=== PATIENT | female | born 1990 | race Caucasian/White ===

== ENCOUNTER → 2016-05-07 | Outpatient (CLI) | payer BC ==
--- NOTE | 2016-05-07 14:33 | US ---
EXAMINATION TYPE: US OB <= 14 wk fetus first trimester DATE OF EXAM: 05/07/2016 2:10 PM COMPARISON: No previous CLINICAL HISTORY: Z36 Confirm Dates. EXAM PERFORMED: Transabdominal (TA) EXAM MEASUREMENTS: GESTATIONAL AGE / DATING Physician Established: (11 weeks/5 days) EDC: 11/21/2016 Dates by LMP: Unknown Dates by First Scan: Today is 1st scan Dates by Current Scan for: (12 weeks/5 days) EDC: 11/14/2016 MATERNAL ANATOMY Uterus: 12.0 x 6.9 x 9.3cm, anteverted Right Ovary: 3.0 x 1.3 x 1.3cm Left Ovary: 3.0 x 2.4 x 1.8cm Post CDS / Adnexa: small amount of free fluid in posterior cul-de-sac Presence of free fluid: yes Presence of corpus luteal cyst: 1.3 x 1.3 x 1.3cm hypoechoic area left ovary Presence of subchorionic bleed: no GESTATION / SURVEY CRL: 6.2cm (12 weeks/5 days) Yolk Sac (normal less than 6mm): not seen Heart Rate: 155 bpm Rhythm: Normal IUP: Viable IUP Nuchal Translucency 10-14wks (normal less than 3mm): unable to obtain due to position Date of LMP: Unknown Beta HcG (if available): Not available at time of exam TECHNOLOGIST IMPRESSION: Viable single IUP measuring 12 weeks 5 days with a heart rate of 155bpm and an estimated delivery date of 11/14/2016. Single live intrauterine gestation is confirmed as gestational sac and pole are seen. Yolk sac is not clearly identified. Tiny amount of free fluid is seen in pelvic cul-de-sac. Both ovaries are identified. Within left ovary there is rim hypervascular 1.3 cm lesion likely reflec ting corpus luteal cyst. No suspicious solid or cystic extraovarian adnexal masses are identified. IMPRESSION: Single live intrauterine gestation is confirmed. Mean crown-rump length is 6.2 cm corresponding to 12 weeks 5 day old fetus.
[2016-05-07 14:48] LABS: CH 28.3; CHCM 32.7; HCT 38.3 % (34.0-46.0); HDW 2.35; HGB 12.2 gm/dL (11.4-16.0); MCH 27.7 pg (25.0-35.0); MCHC 31.9 g/dL (31.0-37.0); MCV 86.9 fL (80.0-100.0); Mean Platelet Volume 7.9; RBC 4.41 m/uL (3.80-5.40); RDW 13.8 % (11.5-15.5)
[2016-05-07 14:58] LABS: Glucose 87 mg/dL (74-99); Non-African American GFR(MDRD) >60 (>60 ml/min/1.73 sqM)
[2016-05-07 15:28] LABS: Hepatitis B Surface Ag Index 0.07
== END | disposition home or self-care (01) ==
LOC: RADUSWWP 13:43
PROVIDERS: ATTEND Obstetrics & Gynecology
DX: Z36 Encounter for antenatal screening of mother (principal); Z3A.12 12 weeks gestation of pregnancy
CPT/HCPCS: 36415; 76801; 82565; 82947; 85027; 86762; 86780; 86850; 86900; 86901; 87340

== ENCOUNTER → 2016-08-07 | Outpatient (CLI) | payer BC ==
[2016-08-07 11:00] LABS: CH 29.9; HCT 32.4 % (34.0-46.0); HDW 2.71; HGB 10.9 gm/dL (11.4-16.0); MCH 29.9 pg (25.0-35.0); MCHC 33.8 g/dL (31.0-37.0); MCV 88.5 fL (80.0-100.0); Mean Platelet Volume 8.7; RBC 3.66 m/uL (3.80-5.40); RDW 13.4 % (11.5-15.5)
== END | disposition home or self-care (01) ==
LOC: LABWHC1 10:41
PROVIDERS: ATTEND Obstetrics & Gynecology
DX: Z34.02 Encounter for supervision of normal first pregnancy, second trimester (principal); Z3A.00 Weeks of gestation of pregnancy not specified
CPT/HCPCS: 36415; 82950; 85027

== ENCOUNTER 2016-11-17 16:29 | Inpatient (IN) | payer BC ==
[~2016-11-17 16:29] MED LIST: BUPIVACAINE (PF) 0.25% 30 ML VIAL ONE; SODIUM CHLORIDE 0.9% 100 ML BAG ONE; fentaNYL (PF) 50 MCG/ML 5 ML AMP ONE
[2016-11-17 17:01] LABS: Appearance,Urine Clear (Clear); Bilirubin,Urine Negative (Negative); Glucose,Urine (UA) Negative (Negative); Ketones,Urine Negative (Negative); Leukocyte Esterase,Urine Negative (Negative); Nitrite,Urine Negative (Negative); PH, Urine 6.5 (5.0-8.0); Protein,Urine Negative (Negative); Specific Gravity,Urine 1.003 (1.001-1.035); UA Billing (MACRO vs. MICRO) CHEM; Urobilinogen,Urine <2.0 mg/dL (<2.0)
--- NOTE | 2016-11-17 17:33 | P.HPOB ---
History of Present Illness H&P Date: 11/17/16 Chief Complaint: Hypertension This patient is a pleasant 26-year-old 1 para 0 female estimated date of confinement 11/14/2016 estimated gestational age 40-3/7 weeks who presented to my office for routine visit was found to have elevated blood pressure 140s over 90s. Patient was scheduled for induction tomorrow. Patient has noticed some swelling but no other signs or symptoms. Patient now presents for observation and delivery. care has been uncomplicated. Review of Systems Constitutional: Denies chills, Denies fever Ears, nose, mouth and throat: Denies headache, Denies sore throat Cardiovascular: Denies chest pain, Denies shortness of breath Gastrointestinal: Reports heartburn Genitourinary: Reports Menstruation: Reports amenorrhea Past Medical History Past Medical History: No Reported History History of Any Multi-Drug Resistant Organisms: None Reported Past Surgical History: No Surgical Hx Reported Past Anesthesia/Blood Transfusion Reactions: No Reported Reaction Past Psychological History: No Psychological Hx Reported Smoking Status: Never smoker Past Alcohol Use History: None Reported Past Drug Use History: None Reported Medications and Allergies Home Medications Medication Instructions Recorded Confirmed Type 78/Iron/Folate 1/Dha 1 tab PO DAILY 11/17/16 11/17/16 History [Prenate Dha Softgel] Allergies Allergy/AdvReac Type Severity Reaction Status Date / Time No Known Allergies Allergy Verified 11/17/16 16:46 Exam - Vital Signs Vital signs: Intake and Output 11/17/16 11/17/16 11/17/16 06:59 14:59 22:59 Other: Weight 90.718 kg Patient Weight 11/18/16 06:59 Weight 90.718 kg - OBG Physical Exam Vulva: both: normal Vagina: normal moisture, no discharge Cervix: no lesion (Cervix is 2 cm and uneffaced but soft.), no discharge Uterus: enlarged (Fundal height is 39 cm.) Results blood work shows she is A positive, rubella low positive, hepatitis B negative, RPR nonreactive, group B strep was negative, ultrasounds have been normal, Glucola was normal. Assessment and Plan (1) Third trimester Narrative/Plan: This is a pleasant 26-year-old 1 para 0 female 40-3/7 weeks gestation with mild gestational hypertension without signs and symptoms of preeclampsia. Patient was scheduled for induction tomorrow. Plan at this time is to check preeclampsia blood work, serial blood pressures and nonstress testing. If evaluation is negative we'll continue observation and proceed with delivery tomorrow morning. Status: Acute (2) Gestational hypertension Status: Acute
[2016-11-17 17:41] LABS: Basophils % (A) 0 %; CH 29.7; CHCM 34.5; Eosinophils # (A) 0.1 k/uL (0-0.7); Eosinophils % (A) 1 %; HCT 33.9 % (34.0-46.0); HDW 2.75; HGB 11.6 gm/dL (11.4-16.0); Luc # (Auto) 0.11; Luc % (Auto) 1; Lymphocytes # (A) 1.1 k/uL (1.0-4.8); Lymphocytes % (A) 14 %; MCH 29.7 pg (25.0-35.0); MCHC 34.3 g/dL (31.0-37.0); MCV 86.6 fL (80.0-100.0); Mean Platelet Volume 9.7; Monocytes # (A) 0.4 k/uL (0-1.0); Monocytes % (A) 5 %; Neutrophils # (A) 6.5 k/uL (1.3-7.7); Neutrophils % (A) 79 %; RBC 3.91 m/uL (3.80-5.40); RDW 14.3 % (11.5-15.5); WBC 8.3 k/uL (3.8-10.6); WBC (Perox) 8.61
[2016-11-17 17:52] LABS: ALT 28 U/L (9-52); AST 20 U/L (14-36); LDH 450 U/L (313-618); Non-African American GFR(MDRD) >60 (>60 ml/min/1.73 sqM); Uric Acid 2.9 mg/dL (3.7-7.4)
[2016-11-17 17:56] VITALS: BMI 30.4
[2016-11-17 18:03] LABS: INR 0.9 (<1.2); Partial Thromboplastin Time 22.6 sec (22.0-30.0); Prothrombin Time 9.4 sec (9.0-12.0)
[2016-11-18] MEDS ORDERED: OXYTOCIN 20 UNITS/1000 ML NS 1,000 ML IV SCH ×2 (05:08→13:15)
[2016-11-18] MEDS ORDERED: OXYTOCIN 10 UNIT/ML 1 ML VIAL IM PRN (05:08)
[2016-11-18] MEDS ORDERED: LIDOCAINE 1% (PF) 10 MG/ML (30 ML SDV) SQ PRN (05:08)
[2016-11-18] MEDS ORDERED: CARBOPROST TROMETHAMINE 250 MCG/ML 1 ML AMP IM PRN (05:08)
[2016-11-18] MEDS ORDERED: METHYLERGONOVINE 0.2 MG/ML 1 ML AMP IM PRN (05:08)
[2016-11-18] MEDS ORDERED: TERBUTALINE 1 MG/ML VIAL SQ PRN (05:08)
[2016-11-18] MEDS: LACTATED RINGERS 1,000 ML IV SCH ×3 (05:21→10:55)
[2016-11-18] MEDS ORDERED: BUPIVACAINE (PF) 0.25% 25 ML, fentaNYL (PF) 200 MCG in SODIUM CHLORIDE 0.9% 71 ML EPIDURAL ONE (11:30)
[2016-11-18] MEDS ORDERED: ZOLPIDEM 5 MG TAB PO PRN (13:08)
[2016-11-18] MEDS ORDERED: diphenhydrAMINE 50 MG/ML 1 ML VIAL IVP PRN (13:08)
[2016-11-18] MEDS ORDERED: diphenhydrAMINE 25 MG CAP PO PRN (13:08)
[2016-11-18] MEDS ORDERED: BISACODYL 10 MG SUPP RECTAL PRN (13:08)
[2016-11-18] MEDS ORDERED: BENZOCAINE/MENTHOL SPRAY 1 GM/SPRAY AEROSOL TOPICAL PRN (13:08)
[2016-11-18] MEDS ORDERED: Acetaminophen-Codeine 300-30mg TAB PO PRN (13:08)
[2016-11-18] MEDS ORDERED: WITCH HAZEL 1 EACH MED..PAD TOPICAL PRN (13:08)
[2016-11-18] MEDS ORDERED: MEASLES-MUMPS-RUBELLA VACC/PF 12,500 UNIT/0.5 ML VIAL SQ ONE (13:08)
[2016-11-18] MEDS ORDERED: HYDROCORTISONE 2.5% RECTAL CREAM 30 GM TUBE RECTAL PRN (13:08)
[2016-11-18] MEDS ORDERED: SIMETHICONE 80 MG CHEWABLE PO PRN (13:08)
[2016-11-18] MEDS ORDERED: LANOLIN CREAM 5 GM TUBE TOPICAL PRN (13:08)
[2016-11-18] MEDS ORDERED: ACETAMINOPHEN TAB 325 MG TAB PO PRN (13:08)
--- NOTE | 2016-11-18 13:12 | P.PROBDLV ---
Vaginal Delivery Note - . Vaginal Delivery Note: Normal vaginal delivery viable female Apgars 8 and 9 delivery time is 1246 hrs. Please see dictated H&P for intimate details of this patient's admission. Brief summary this is a pleasant 26-year-old 1 para 0 female 40-3/7 weeks gestation who is admitted last evening for evaluation of hypertension patient's preeclampsia evaluation was negative and blood pressures were normal.' s morning patient had artificial rupture membranes at 2 cm for clear fluid labor was induced with Pitocin. Labor progresses quickly and she did receive an epidural for pain control. Patient pushes the head to the perineum and a midline episiotomy is made. We then have controlled delivery of infant's head over the perineum. Mouth and nares are bulb suctioned and there is no evidence of a nuchal cord. With gentle downward traction we then have deliver the anterior and posterior shoulder and rest this 's body. Is a vigorous viable female infant Apgars are 8 and 9 delivery time is 1246 hrs. After delivery of the infant the umbilical cord is doubly clamped and cut it is trivascular but is noted to have a true knot. Placenta spontaneously delivered intact. Estimated blood loss is 150 mL. Second-degree laceration was repaired with 3-0 Vicryl in the usual fashion excellent reapproximation is noted. All counts are correct 3. No complications. and mother stable delivery room.
[2016-11-18] MEDS: IBUPROFEN 600 MG TAB PO PRN (15:35)
[2016-11-18] MEDS: SENNOSIDES-DOCUSATE SODIUM 1 EACH TAB PO SCH (19:37)
[2016-11-19] MEDS: IBUPROFEN 600 MG TAB PO PRN ×3 (06:10→18:01)
--- NOTE | 2016-11-19 06:24 | P.PNOBGVD ---
Subjective - Subjective Patient reports: Reports appetite normal, Reports voiding normally, Reports pain well controlled, Reports ambulating normally : doing well Objective - Latest Vital Signs Latest vital signs: Vital Signs Temp Pulse Pulse Resp BP BP Pulse Ox 11/19/16 00:00 98 F 74 15 110/56 11/18/16 20:00 98.5 F 84 18 131/77 11/18/16 16:00 98.5 F 76 16 133/73 97 11/18/16 15:09 98.4 F 80 16 127/66 11/18/16 14:39 95 16 164/85 11/18/16 14:09 85 16 139/76 11/18/16 13:54 81 16 157/90 11/18/16 13:39 86 16 153/95 11/18/16 13:24 89 16 154/91 11/18/16 13:09 98.5 F 85 16 146/90 Intake and Output 11/18/16 11/18/16 11/19/16 14:59 22:59 06:59 Intake Total 2521.85 Output Total 300 Balance 2221.85 Intake: Intake, IV Titration 2521.85 Amount Lactated Ringers 1,000 ml 2000 @ 125 mls/hr IV .Q8H NEPTALI Rx#:[id number] Oxytocin 20 Units/1000 ml 521.85 Ns 1,000 ml @ 1 MILLIUNIT/MIN 3 mls/hr IV .Q24H NEPTALI Rx#:[id number] Output: Urine 150 Estimated Blood Loss 150 Other: # Voids 1 1 1 # Bowel Movements 0 - Exam Lungs: bilateral: normal Chest: Normal S1, Normal S2 Extremities: Present: normal Abdomen: Present: normal appearance, soft Uterus: Present: normal, firm Assessment and Plan (1) Third trimester Narrative/Plan: Post day #1. Patient is resting without complaints and would like to go home. Vital signs are stable she is afebrile. Uterus firm nontender and she is having normal lochia. Patient's baby is in special care but most likely will go out today and possible discharge. Current Visit: Yes Status: Acute Code(s): Z34.93 - ENCNTR FOR SUPRVSN OF NORMAL PREG, UNSP, THIRD TRIMESTER SNOMED Code(s): 47580082 (2) Gestational hypertension Current Visit: Yes Status: Acute Code(s): O13.9 - GESTATIONAL HTN W/O SIGNIFICANT PROTEINURIA, UNSP TRIMESTER SNOMED Code(s): 96263313
--- NOTE | 2016-11-19 06:26 | P.DS ---
Providers Date of admission: 11/17/16 16:29 Expected date of discharge: 11/19/16 Attending physician: Titus Brothers Primary care physician: Mario Seymour - Discharge Diagnosis(es) (1) Third trimester Current Visit: Yes Status: Acute (2) Gestational hypertension Current Visit: Yes Status: Acute Hospital Course: Please see dictated H&P for intimate details of this patient's admission. Brief summary is a pleasant 26-year-old 1 para 0 female 40-3/7 weeks gestation is admitted to labor and delivery for evaluation of an elevated blood pressure in the office. Patient's found not to have gestational hypertension. Patient has induction of labor electively the following day and quickly goes on to have a vaginal delivery viable female . Please see dictated delivery note. day 1 patient without complaints and wishes to go home. Patient's felt be stable for discharge home follow up with me in 6 weeks. Procedures: Normal spontaneous vaginal delivery Patient Condition at Discharge: Good Plan - Discharge Summary New Discharge Prescriptions: New Acetaminophen-Codeine 300-30mg [Tylenol w/codeine #3] 1 - 2 each PO Q4HR PRN #30 tab PRN Reason: Mild Pain exceeding Tylenol Ibuprofen [Motrin] 600 mg PO Q6HR PRN #40 tab PRN Reason: Mild Pain Or Fever >= 100.5 No Action 78/Iron/Folate 1/Dha [Prenate Dha Softgel] 1 tab PO DAILY Discharge Medication List 78/Iron/Folate 1/Dha [Prenate Dha Softgel] 1 tab PO DAILY 11/17/16 [ History] Acetaminophen-Codeine 300-30mg [Tylenol w/codeine #3] 1 - 2 each PO Q4HR PRN # 30 tab 11/19/16 [Rx] Ibuprofen [Motrin] 600 mg PO Q6HR PRN #40 tab 11/19/16 [Rx] Follow up Appointment(s)/Referral(s): Titus Brothers MD [STAFF PHYSICIAN] - 01/01/17 8:45 am Patient Instructions/Handouts: Vaginal Delivery (DC) Activity/Diet/Wound Care/Special Instructions: No intercourse reining per vagina for 6 weeks. Please call if any fever, chills , excessive vaginal bleeding, and/or abdominal pain. Discharge Disposition: HOME SELF-CARE
[2016-11-19] MEDS: SENNOSIDES-DOCUSATE SODIUM 1 EACH TAB PO SCH ×2 (09:10→20:16)
[2016-11-19] MEDS: Acetaminophen-Codeine 300-30mg TAB PO PRN ×2 (09:34→20:15)
[2016-11-20] MEDS: Acetaminophen-Codeine 300-30mg TAB PO PRN ×2 (00:28→06:43)
--- NOTE | 2016-11-20 05:51 | P.PNOBGVD ---
Subjective - Subjective Patient reports: Reports appetite normal, Reports voiding normally, Reports pain well controlled, Reports ambulating normally : doing well Objective - Latest Vital Signs Latest vital signs: Vital Signs Temp Pulse Resp BP BP 11/19/16 23:50 97.8 F 79 18 118/63 11/19/16 17:00 98 F 84 16 112/66 11/19/16 09:00 97.9 F 90 16 142/92 - Exam Lungs: bilateral: normal Chest: Normal S1, Normal S2 Extremities: Present: normal Abdomen: Present: normal appearance, soft Uterus: Present: normal, firm Assessment and Plan (1) Third trimester Narrative/Plan: day #2. Patient is resting without complaints. She did decide to stay yesterday because her baby is still in the special care nursery. Will be discharged home today. Continue routine care. Current Visit: Yes Status: Acute Code(s): Z34.93 - ENCNTR FOR SUPRVSN OF NORMAL PREG, UNSP, THIRD TRIMESTER SNOMED Code(s): 38541816 (2) Gestational hypertension Current Visit: Yes Status: Acute Code(s): O13.9 - GESTATIONAL HTN W/O SIGNIFICANT PROTEINURIA, UNSP TRIMESTER SNOMED Code(s): 98031257
[2016-11-20] MEDS: SENNOSIDES-DOCUSATE SODIUM 1 EACH TAB PO SCH (09:23)
[2016-11-20 09:31] VITALS: RESP 16
[2016-11-20] MEDS: IBUPROFEN 600 MG TAB PO PRN (11:02)
[2016-11-20 15:21] VITALS: PULSE 72; TEMP 98.1
[2016-11-20 16:27] VITALS: BP 138/77
== END 2016-11-20 17:30 | disposition home or self-care (01) | DRG 775 ==
LOC: 4FBP 16:29
PROVIDERS: ADMIT Obstetrics & Gynecology; ATTEND Obstetrics & Gynecology
PROC: 10E0XZZ Delivery of Products of Conception, External Approach (ICD-10-PCS; principal; 2016-11-18)
PROC: 3E0R3CZ (ICD-10-PCS; principal; 2016-11-18)
PROC: 0W8NXZZ Division of Female Perineum, External Approach (ICD-10-PCS; principal; 2016-11-18)
PROC: 3E033VJ Introduction of Other Hormone into Peripheral Vein, Percutaneous Approach (ICD-10-PCS; principal; 2016-11-18)
PROC: 00HU33Z Insertion of Infusion Device into Spinal Canal, Percutaneous Approach (ICD-10-PCS; principal; 2016-11-18)
PROC: 10907ZC Drainage of Amniotic Fluid, Therapeutic from Products of Conception, Via Natural or Artificial Opening (ICD-10-PCS; principal; 2016-11-18)
PROC: 0KQM0ZZ Repair Perineum Muscle, Open Approach (ICD-10-PCS; principal; 2016-11-18)
DX: O13.4 Gestational [pregnancy-induced] hypertension without significant proteinuria, complicating childbirth (principal); O69.2XX0 Labor and delivery complicated by other cord entanglement, with compression, not applicable or unspecified; O70.1 Second degree perineal laceration during delivery; Z37.0 Single live birth; Z3A.40 40 weeks gestation of pregnancy
CPT/HCPCS: 81003; 82565; 83615; 84450; 84460; 84550; 85025; 85610; 85730; 88307

== ENCOUNTER 2016-12-23 09:32 | Emergency (ER) | payer BC ==
--- NOTE | 2016-12-23 10:18 | ED ---
General Adult HPI - General Chief complaint: Abdominal Pain Stated complaint: abdominal pain/sent by dVisit Time Seen by Provider: 12/23/16 10:00 Source: patient, RN notes reviewed Mode of arrival: ambulatory Limitations: no limitations - History of Present Illness Initial comments: This is a 26-year-old female who is 1 month. Patient states she comes in today because she's having right upper quadrant epigastric abdominal pain. Patient states it began about 4 AM this morning. Patient states she is mildly nauseous but has not vomited. Patient denies any diarrhea. Patient denies any fever or chills. Patient states it was a vaginal delivery without complications. Patient denies any chest pain difficulty breathing or shortness of breath per patient denies any palpitations. Patient denies any back pain. Patient denies any dysuria hematuria urinary frequency. Patient denies any lower abdominal pain. Patient denies any vaginal bleeding or discharge. Patient denies headache patient denies lightheadedness. - Related Data Home Medications Medication Instructions Recorded Confirmed No Known Home Medications [No 12/23/16 12/23/16 Known Home Medications] Allergies Allergy/AdvReac Type Severity Reaction Status Date / Time No Known Allergies Allergy Verified 12/23/16 09:58 Review of Systems ROS Statement: Those systems with pertinent positive or pertinent negative responses have been documented in the HPI. ROS Other: All systems not noted in ROS Statement are negative. Past Medical History Past Medical History: No Reported History History of Any Multi-Drug Resistant Organisms: None Reported Past Surgical History: No Surgical Hx Reported Past Anesthesia/Blood Transfusion Reactions: No Reported Reaction Past Psychological History: No Psychological Hx Reported Smoking Status: Never smoker Past Alcohol Use History: None Reported Past Drug Use History: None Reported - Past Family History Father Family Medical History: Hypertension General Exam - General Exam Comments Initial Comments: GENERAL: Patient is well-developed and well-nourished. Patient is nontoxic and well- hydrated and is in mild distress. ENT: Neck is soft and supple. No significant lymphadenopathy is noted. Oropharynx is clear. Moist mucous membranes. Neck has full range of motion without eliciting any pain. EYES: The sclera were anicteric and conjunctiva were pink and moist. Extraocular movements were intact and pupils were equal round and reactive to light. Eyelids were unremarkable. PULMONARY: Unlabored respirations. Good breath sounds bilaterally. No audible rales rhonchi or wheezing was noted. CARDIOVASCULAR: There is a regular rate and rhythm without any murmurs gallops or rubs. ABDOMEN: Patient has right upper quadrant and epigastric tenderness but no rebound. No palpable organomegaly was noted. There is no palpable pulsatile mass. SKIN: Skin is clear with no lesions or rashes and otherwise unremarkable. NEUROLOGIC: Patient is alert and oriented x3. Cranial nerves II through XII are grossly intact. Motor and sensory are also intact. Normal speech, volume and content. Symmetrical smile. MUSCULOSKELETAL: Normal extremities with adequate strength and full range of motion. No lower extremity swelling or edema. No calf tenderness. LYMPHATICS: No significant lymphadenopathy is noted PSYCHIATRIC: Normal psychiatric evaluation. Normal interpersonal interactions appears functionally intact in deals appropriately with others. No signs of depression. No signs of anxiety. Limitations: no limitations Course Vital Signs 12/23/16 12/23/16 12/23/16 09:50 11:09 12:18 Temperature 97.9 F 97.7 F 98.5 F Pulse Rate 100 64 75 Respiratory 20 18 18 Rate Blood Pressure 128/74 146/89 119/66 O2 Sat by Pulse 98 95 Oximetry Medical Decision Making - Medical Decision Making Ultrasound of the gallbladder ultrasound showed some gallstones in the gallbladder. The common bile duct was 0.6 cm. I spoke with the patient after all her labs and studies were done and she stated she is pain-free at this time. I spoke with Dr. Flores he agrees to follow up with the patient tomorrow and he will repeat lab work and checked the patient out again. - Lab Data Result diagrams: 12/23/16 10:12/23/16 10:28 Lab Results 12/23/16 12/23/16 12/23/16 Range/Units 10:28 10:28 10:28 WBC 10.1 (3.8-10.6) k/uL RBC 4.97 (3.80-5.40) m/uL Hgb 13.8 (11.4-16.0) gm/dL Hct 43.3 (34.0-46.0) % MCV 87.1 (80.0-100.0) fL MCH 27.7 (25.0-35.0) pg MCHC 31.9 (31.0-37.0) g/dL RDW 14.1 (11.5-15.5) % Plt Count 270 (150-450) k/uL Neutrophils % 86 % Lymphocytes % 8 % Monocytes % 4 % Eosinophils % 1 % Basophils % 0 % Neutrophils # 8.7 H (1.3-7.7) k/uL Lymphocytes # 0.8 L (1.0-4.8) k/uL Monocytes # 0.4 (0-1.0) k/uL Eosinophils # 0.1 (0-0.7) k/uL Basophils # 0.0 (0-0.2) k/uL Sodium 141 (137-145) mmol/L Potassium 4.0 (3.5-5.1) mmol/L Chloride 104 (98-107) mmol/L Carbon Dioxide 24 (22-30) mmol/L Anion Gap 13 mmol/L BUN 8 (7-17) mg/dL Creatinine 0.66 (0.52-1.04) mg/dL Est GFR (MDRD) Af Amer >60 (>60 ml/min/1.73 sqM) Est GFR (MDRD) Non-Af >60 (>60 ml/min/1.73 sqM) Glucose 98 (74-99) mg/dL Calcium 10.4 H (8.4-10.2) mg/dL Total Bilirubin 1.3 (0.2-1.3) mg/dL AST 563 H (14-36) U/L ALT 283 H (9-52) U/L Alkaline Phosphatase 238 H (38-126) U/L Total Protein 8.1 (6.3-8.2) g/dL Albumin 4.9 (3.5-5.0) g/dL Amylase 34 (30-110) U/L Lipase 89 (23-300) U/L Urine Color Yellow Urine Appearance Cloudy H (Clear) Urine pH 6.5 (5.0-8.0) Ur Specific [place] 1.015 (1.001-1.035) Urine Protein Negative (Negative) Urine Glucose (UA) Negative (Negative) Urine Ketones Negative (Negative) Urine Blood Moderate H (Negative) Urine Nitrite Negative (Negative) Urine Bilirubin Negative (Negative) Urine Urobilinogen <2.0 (<2.0) mg/dL Ur Leukocyte Esterase Moderate H (Negative) Urine RBC 2 (0-5) /hpf Urine WBC 6 H (0-5) /hpf Ur Squamous Epith Cells 4 (0-4) /hpf Urine Mucus Occasional H (None) /hpf Disposition Clinical Impression: Choledocholithiasis Disposition: HOME SELF-CARE Condition: Good Instructions: Biliary Colic (ED), Gallstones (ED) Referrals: Mario Seymour MD [Primary Care Provider] - 1-2 days Time of Disposition: 12:32
[2016-12-23 10:43] LABS: Basophils % (A) 0 %; CH 28.1; CHCM 32.4; Eosinophils # (A) 0.1 k/uL (0-0.7); Eosinophils % (A) 1 %; HCT 43.3 % (34.0-46.0); HDW 2.31; HGB 13.8 gm/dL (11.4-16.0); Luc # (Auto) 0.07; Luc % (Auto) 1; Lymphocytes # (A) 0.8 k/uL (1.0-4.8); Lymphocytes % (A) 8 %; MCH 27.7 pg (25.0-35.0); MCHC 31.9 g/dL (31.0-37.0); MCV 87.1 fL (80.0-100.0); Mean Platelet Volume 8.7; Monocytes # (A) 0.4 k/uL (0-1.0); Monocytes % (A) 4 %; Neutrophils # (A) 8.7 k/uL (1.3-7.7); Neutrophils % (A) 86 %; RBC 4.97 m/uL (3.80-5.40); RDW 14.1 % (11.5-15.5); WBC 10.1 k/uL (3.8-10.6); WBC (Perox) 10.47
[2016-12-23 10:51] LABS: Appearance,Urine Cloudy (Clear); Bilirubin,Urine Negative (Negative); Glucose,Urine (UA) Negative (Negative); Ketones,Urine Negative (Negative); Leukocyte Esterase,Urine Moderate (Negative); Mucus,Urine Occasional /hpf; Nitrite,Urine Negative (Negative); PH, Urine 6.5 (5.0-8.0); Particle Count 5979; Protein,Urine Negative (Negative); RBC,Urine 2 /hpf (0-5); Specific Gravity,Urine 1.015 (1.001-1.035); Squamous Epithelial Cell,Urine 4 /hpf (0-4); UA Billing (MACRO vs. MICRO) MICRO; Urobilinogen,Urine <2.0 mg/dL (<2.0); WBC,Urine 6 /hpf (0-5)
[2016-12-23 10:55] LABS: ALT 283 U/L (9-52); AST 563 U/L (14-36); Alkaline Phosphatase 238 U/L (38-126); Amylase 34 U/L (30-110); Anion Gap 13 mmol/L; Blood Urea Nitrogen 8 mg/dL (7-17); Calcium 10.4 mg/dL (8.4-10.2); Carbon Dioxide 24 mmol/L (22-30); Chloride 104 mmol/L (98-107); Glucose 98 mg/dL (74-99); Non-African American GFR(MDRD) >60 (>60 ml/min/1.73 sqM); Sodium 141 mmol/L (137-145); Total Bilirubin 1.3 mg/dL (0.2-1.3); Total Protein 8.1 g/dL (6.3-8.2)
[2016-12-23 11:10] VITALS: RESP 18
--- NOTE | 2016-12-23 11:24 | US ---
EXAMINATION TYPE: US gallbladder DATE OF EXAM: 12/23/2016 COMPARISON: CLINICAL HISTORY: Pain. x 1 month with vaginal delivery. RUQ pain since 4:00 this morning -- pain is starting to diminish. NPO. EXAM MEASUREMENTS: Liver Length: 17.8 cm Gallbladder Wall: 0.3 cm CHD: 0.6 cm Right Kidney: 11.8 x 5.5 x 5.2 cm Pancreas: wnl Liver: Enlarged at the cranial caudal dimension of 17.8 cm. Normal less than 15.5 cm. Gallbladder: Multiple mobile echogenic foci with shadowing Evidence for sonographic Louis's sign: neg CHD: upper limits of normal Right Kidney: wnl IMPRESSION: 1. Hepatomegaly.
[2016-12-23 12:19] VITALS: BP 119/66; PULSE 75; TEMP 98.5
== END 2016-12-23 12:57 | disposition home or self-care (01) ==
LOC: EC 09:32
DX: O26.63 Liver and biliary tract disorders in the puerperium (principal); K80.50 Calculus of bile duct without cholangitis or cholecystitis without obstruction
CPT/HCPCS: 36415; 76705; 80053; 80074; 81001; 82150; 83690; 85025; 99284

== ENCOUNTER 2019-07-23 15:28 | Outpatient (CLI) | payer BC ==
[2019-07-23 16:08] LABS: Appearance,Urine Cloudy (Clear); Bacteria,Urine Occasional /hpf; Bilirubin,Urine Negative (Negative); Blood,Urine Negative (Negative); Color,Urine Yellow; Glucose,Urine (UA) Negative (Negative); Ketones,Urine Trace (Negative); Leukocyte Esterase,Urine Negative (Negative); Mucus,Urine Few /hpf; Nitrite,Urine Negative (Negative); Protein,Urine Trace (Negative); RBC,Urine 1 /hpf (0-5); Specific Gravity,Urine 1.014 (1.001-1.035); Squamous Epithelial Cell,Urine 5 /hpf (0-4); Urobilinogen,Urine <2.0 mg/dL (<2.0); WBC,Urine 3 /hpf (0-5)
[2019-07-23 16:16] LABS: Basophils % (A) 0 %; Eosinophils # (A) 0.1 k/uL (0-0.7); Eosinophils % (A) 1 %; HCT 35.7 % (34.0-46.0); HGB 11.6 gm/dL (11.4-16.0); Lymphocytes # (A) 1.3 k/uL (1.0-4.8); Lymphocytes % (A) 14 %; MCHC 32.4 g/dL (31.0-37.0); MCV 86.4 fL (80.0-100.0); Mean Platelet Volume 10.1; Monocytes # (A) 0.4 k/uL (0-1.0); Monocytes % (A) 5 %; Neutrophils % (A) 79 %; Platelet Count 233 k/uL (150-450); RBC 4.14 m/uL (3.80-5.40); WBC 8.9 k/uL (3.8-10.6)
[2019-07-23 16:28] LABS: Creatinine,Urine Random 134.5 mg/dL
[2019-07-23 16:28] LABS: ALT 15 U/L (4-34); AST 19 U/L (14-36); African American GFR (CKD) >90 (>60 ml/min/1.73 sqM); Blood Urea Nitrogen 8 mg/dL (7-17); LDH 324 U/L (313-618); Non-African American GFR(CKD) >90 (>60 ml/min/1.73 sqM); Uric Acid 3.9 mg/dL (3.7-7.4)
[2019-07-23 16:29] LABS: Protein/Creatinine Ratio,Urine 0.102
[2019-07-23 17:05] VITALS: BP 130/80; PULSE 100; RESP 16; TEMP 97.7
--- NOTE | 2019-07-23 18:54 | P.MSEPDOC ---
Presenting Problems - Arrival Data Date of Arrival on Unit: 07/23/19 Time of Arrival on Unit: 15:35 Mode of Transport: Ambulatory - Complaint OB-Reason for Admission/Chief Complaint: Headache Comment: PIH workup r/t pt reporting increased BP to dr earl Medical History - Information : 2 Para: 1 Term: 1 : 0 Abortions: Spontaneous or Elective: 0 Number of Living Children: 1 - Gestational Age Gestational Age by YAIMA (wks/days): 38 Weeks and 4 Days Review of Systems - Review of Systems Constitutional: No problems Breast: No problems ENT: No problems Cardiovascular: No problems Respiratory: No problems Gastrointestinal: No problems Genitourinary: No problems Musculoskeletal: No problems Neurological: No problems Skin: No problems Vital Signs - Temperature Temperature: 97.7 F Temperature Source: Temporal Artery Scan - Pulse Right Brachial Pulse Rate: 100 Pulse Assessment Method: Automatic Cuff - Respirations Respiratory Rate: 16 Oxygen Delivery Method: Room Air - Blood Pressure Right Arm Blood Pressure: 130/80 Blood Pressure Mean: 96 Blood Pressure Source: Automatic Cuff Medical Screen Scoring (Pre) - Cervical Exam Dilation: Exam Deferred - Uterine Contractions Frequency: N/A Duration: N/A Intensity: N/A - Maternal Vital Signs Maternal Temperature: N/A Maternal Blood Pressure: N/A Signs of Preeclampsia: Headache = 1 Maternal Respirations: N/A - Maternal Trauma Maternal Trauma: N/A - Assessment - Baby A Baseline FHR: 155 Heart Rate - NICHD Category: Category I (Normal) = 0 NST: Reactive Position: N/A Station: N/A - Total Score - Baby A Total Score - Baby A: 1 - Total Score - Baby B Total Score - Baby B: 1 - Total Score - Baby C Total Score - Baby C: 1 - Level of Risk - Baby A Level of Risk - Baby A: Low (0-5) - Level of Risk - Baby B Level of Risk - Baby B: Low (0-5) - Level of Risk - Baby C Level of Risk - Baby C: Low (0-5) Physician Notification (Pre) - Physician Notified Physician Notified Date: 07/23/19 Physician Notified Time: 16:35 New Order Received: Yes - Notification Comment Comment: aware of pts visit. lab results, bp, and fht reviewed. all wln, pt may be discharged home Disposition - Disposition OB Disposition: Discharge to home Discharge Date: 07/23/19 Discharge Time: 16:38 I agree with the RN Medical Screening Exam: Yes Risk & Benefit of care provided described in d/c instruction: Yes Diagnosis: GESTATIONAL HTN W/O SIGNIFICANT PROTEINURIA, THIRD TRIMESTER
== END 2019-07-23 16:38 | disposition home or self-care (01) ==
LOC: FBPOP 15:28
PROVIDERS: ATTEND Obstetrics & Gynecology
DX: O13.3 Gestational [pregnancy-induced] hypertension without significant proteinuria, third trimester (principal); Z3A.38 38 weeks gestation of pregnancy
CPT/HCPCS: 59025; 81001; 82565; 82570; 83615; 84156; 84450; 84460; 84520; 84550; 85025; 99215

== ENCOUNTER 2019-07-27 06:00 | Inpatient (IN) | payer BC ==
--- NOTE | 2019-07-26 12:41 | P.HPOB ---
History of Present Illness H&P Date: 07/26/19 Chief Complaint: Induction of labor This patient is a pleasant 29-year-old 2 para 1 female estimated date of confinement 08/02/2019 estimated gestational age 39 weeks who presents to labor and delivery for requested induction of labor. Patient's care has been uncomplicated. She did have a history of gestational hypertension postdates last time I was had no blood pressure problems this . Patient this point is requesting induction of labor. Review of Systems Genitourinary: Reports Menstruation: Reports amenorrhea Past Medical History Past Medical History: No Reported History Additional Past Medical History / Comment(s): History of migraine headaches. Patient's had a term vaginal delivery baby girl. History of Any Multi-Drug Resistant Organisms: None Reported Past Surgical History: No Surgical Hx Reported Past Anesthesia/Blood Transfusion Reactions: No Reported Reaction Past Psychological History: No Psychological Hx Reported Smoking Status: Never smoker Past Alcohol Use History: None Reported Past Drug Use History: None Reported - Past Family History Father Family Medical History: Hypertension Medications and Allergies Home Medications Medication Instructions Recorded Confirmed Type Pnv,Calcium 72/Iron/Folic Acid 1 each PO 07/23/19 History [ Plus Tablet] Allergies Allergy/AdvReac Type Severity Reaction Status Date / Time No Known Allergies Allergy Verified 12/23/16 09:58 Exam - OBG Physical Exam Abdomen: bowel sounds normal, no diffuse tenderness, no bruit present, no guarding noted, no hepatomegaly, no splenomegaly, no mass Vulva: both: normal Vagina: normal moisture, no discharge Cervix: no lesion (Cervix in the office was 2 cm dilated 50% effaced.), no discharge Uterus: enlarged ( ) Results Patient's blood work shows she is A+, rubella immune, RPR is nonreactive, hepatitis B is negative, Glucola was normal, group B strep was negative, ultrasound was normal. Assessment and Plan Assessment: This is a pleasant 29-year-old 2 para 1 female 39 weeks gestation is admitted to labor and delivery for requested induction of labor. Plan is induction of labor and anticipate vaginal delivery. (1) 39 weeks gestation of Status: Acute Code(s): Z3A.39 - 39 WEEKS GESTATION OF SNOMED Code(s): 44836643 (2) Elective induction of labor planned Status: Acute Code(s): IEY7954 - SNOMED Code(s): 891127066
[2019-07-27] MEDS ORDERED: LIDOCAINE 0.5% (PF) 5 MG/ML (50 ML SDV) SQ PRN (06:31)
[2019-07-27] MEDS ORDERED: METHYLERGONOVINE 0.2 MG/ML 1 ML AMP IM PRN (06:31)
[2019-07-27] MEDS ORDERED: LACTATED RINGERS 1,000 ML IV SCH (06:31)
[2019-07-27] MEDS ORDERED: OXYTOCIN 30 UNITS/500 ML NS 30 UNIT in SALINE 1 500ML.BAG IV SCH (06:31)
[2019-07-27] MEDS ORDERED: OXYTOCIN 10 UNIT/ML 1 ML VIAL IM PRN (06:31)
[2019-07-27] MEDS ORDERED: CARBOPROST TROMETHAMINE 250 MCG/ML 1 ML AMP IM PRN (06:31)
[2019-07-27] MEDS ORDERED: TERBUTALINE 1 MG/ML VIAL SQ PRN (06:31)
[2019-07-27 07:03] LABS: Basophils % (A) 0 %; Eosinophils # (A) 0.1 k/uL (0-0.7); Eosinophils % (A) 2 %; HCT 36.5 % (34.0-46.0); HGB 11.7 gm/dL (11.4-16.0); Lymphocytes # (A) 1.4 k/uL (1.0-4.8); Lymphocytes % (A) 17 %; MCH 27.9 pg (25.0-35.0); MCHC 32.1 g/dL (31.0-37.0); MCV 87.2 fL (80.0-100.0); Mean Platelet Volume 9.6; Monocytes # (A) 0.3 k/uL (0-1.0); Monocytes % (A) 4 %; Neutrophils # (A) 6.1 k/uL (1.3-7.7); Neutrophils % (A) 76 %; Platelet Count 227 k/uL (150-450); RBC 4.19 m/uL (3.80-5.40); RDW 14.2 % (11.5-15.5)
[2019-07-27] MEDS ORDERED: fentaNYL (PF) 50 MCG/ML 5 ML AMP ONE (11:00)
[2019-07-27] MEDS ORDERED: ROPIVACAINE 5MG/ML 20ML VIAL ONE (11:00)
[2019-07-27] MEDS ORDERED: SODIUM CHLORIDE 0.9% 100 ML BAG ONE (11:00)
[2019-07-27] MEDS ORDERED: ZOLPIDEM 5 MG TAB PO PRN (13:47)
[2019-07-27] MEDS ORDERED: OXYTOCIN 20 UNITS/1000 ML NS 1,000 ML IV SCH (13:47)
[2019-07-27] MEDS ORDERED: BENZOCAINE/MENTHOL SPRAY 1 GM/SPRAY AEROSOL TOPICAL PRN (13:47)
[2019-07-27] MEDS ORDERED: WITCH HAZEL 1 EACH MED..PAD TOPICAL PRN (13:47)
[2019-07-27] MEDS ORDERED: BISACODYL 10 MG SUPP RECTAL PRN (13:47)
[2019-07-27] MEDS ORDERED: diphenhydrAMINE 25 MG CAP PO PRN (13:47)
[2019-07-27] MEDS ORDERED: ACETAMINOPHEN TAB 325 MG TAB PO PRN (13:47)
[2019-07-27] MEDS ORDERED: diphenhydrAMINE 50 MG/ML 1 ML VIAL IVP PRN (13:47)
[2019-07-27] MEDS ORDERED: SIMETHICONE 80 MG CHEWABLE PO PRN (13:47)
[2019-07-27] MEDS ORDERED: HYDROCORTISONE 2.5% RECTAL CREAM 30 GM TUBE RECTAL PRN (13:47)
[2019-07-27] MEDS ORDERED: LANOLIN CREAM 5 GM TUBE TOPICAL PRN (13:47)
[2019-07-27] MEDS: SENNOSIDES-DOCUSATE SODIUM 1 EACH TAB PO SCH ×2 (15:09→20:46)
--- NOTE | 2019-07-27 18:18 | P.PROBDLV ---
Vaginal Delivery Note - . Vaginal Delivery Note: Normal vaginal delivery viable female Apgars 8 and 9 delivery time is 1334 hrs. Please see dictated H&P for intimate details of this patient's admission. In brief summary this is a pleasant 29-year-old 2 para 1 female 39 and one sevenths weeks gestation who is admitted to labor and delivery for requested induction of labor. On admission patient is 3 cm dilated has artificial rupture membranes for clear fluid. Patient's labor is induced with Pitocin per protocol. Patient progresses and she does get an epidural for pain control. Of note she did develop a headache after this and she has a history of a post epidural spinal headache. I did discuss this with the anesthesiologist and he felt that the epidural was placed without incident on 1 attempt however we will continue to watch closely. Patient's labor progresses and she quickly gets to complete. She pushes approximate 3 times pushes the head to the perineum. Posterior perineum was supported and we have controlled delivery of infant's head over the intact perineum. Mouth and nares are bulb suctioned. There is no evidence of a nuchal cord. With gentle downward traction we then have deliver the anterior and posterior shoulder and rest this infant's body. This is a vigorous viable female infant Apgars are 8 and 9 delivery time is 1334 hrs. After delivery of the the umbilical cord is allowed to quit pulsating is then doubly clamped and cut. It does appear to be trivascular. The placenta is then spontaneously delivered intact. Inspection of the perineum shows a first- degree vaginal laceration and right labial laceration. These are repaired with 3-0 Vicryl in the usual fashion excellent reapproximation is noted. Estimated blood loss is 100 mL. There are no complications. All counts are correct 3. Infant and mother stable delivery room.
[2019-07-28] MEDS: IBUPROFEN 600 MG TAB PO PRN ×2 (00:34→09:38)
--- NOTE | 2019-07-28 06:40 | P.PNOBGVD ---
Subjective - Subjective Patient reports: Reports appetite normal, Reports voiding normally, Reports pain well controlled, Reports ambulating normally : doing well Objective - Latest Vital Signs Latest vital signs: Vital Signs Temp Pulse Resp BP Pulse Ox 07/28/19 00:00 98 F 70 18 123/78 100 07/27/19 20:00 97.8 F 71 18 116/67 98 07/27/19 15:49 97.4 F L 83 16 135/72 07/27/19 15:19 97.4 F L 77 16 120/72 07/27/19 14:49 97.3 F L 97 16 125/72 07/27/19 14:34 97.3 F L 93 16 130/76 07/27/19 14:19 97.0 F L 86 16 118/66 07/27/19 14:04 97.7 F 82 16 127/67 07/27/19 13:49 90 16 126/68 07/27/19 07:16 97.8 F 82 16 132/79 Intake and Output 07/27/19 07/27/19 07/28/19 14:59 22:59 06:59 Output Total 200 100 Balance -200 -100 Output: Estimated Blood Loss 200 100 Other: # Voids 1 Weight 95.254 kg - Exam Lungs: bilateral: normal Chest: Normal S1, Normal S2 Extremities: Present: normal Abdomen: Present: normal appearance, soft Uterus: Present: normal, firm Assessment and Plan Assessment: day #1. Patient is resting without new complaints. She does get a headache when she lays flat but this improves with ibuprofen and sitting up which is not consistent with a spinal headache. Anesthesia has talked to her last night were to continue just to observe most likely go home today. Patient is having normal lochia. Plan today is to continue routine care discharge home later today. (1) 39 weeks gestation of Current Visit: No Status: Acute Code(s): Z3A.39 - 39 WEEKS GESTATION OF SNOMED Code(s): 54413192 (2) Elective induction of labor planned Current Visit: No Status: Acute Code(s): TTG3223 - SNOMED Code(s): 075457144
--- NOTE | 2019-07-28 06:43 | P.DS ---
Providers Date of admission: 07/27/19 06:02 Expected date of discharge: 07/28/19 Attending physician: Titus Brothers Primary care physician: Stated None - Discharge Diagnosis(es) (1) 39 weeks gestation of Current Visit: No Status: Acute (2) Elective induction of labor planned Current Visit: No Status: Acute Hospital Course: Please see dictated H&P for intimate details of this patient's admission. Brief summary this is a pleasant 29-year-old 2 para 1 female 39 weeks gestation admitted to labor and delivery for elective induction of labor. Patient is admitted she is uncomplicated induction of labor goes on have a vaginal delivery viable female . Please see dictated delivery note. patient's felt be stable for discharge home follow up with me in 6 weeks. Procedures: Induction of labor and normal vaginal delivery Patient Condition at Discharge: Good Plan - Discharge Summary New Discharge Prescriptions: New Ibuprofen [Motrin] 600 mg PO Q6HR PRN #40 tab PRN Reason: Mild Pain Or Fever >= 100.5 No Action Pnv,Calcium 72/Iron/Folic Acid [ Plus Tablet] 1 each PO DAILY Discharge Medication List Pnv,Calcium 72/Iron/Folic Acid [ Plus Tablet] 1 each PO DAILY 07/23/19 [History] Ibuprofen [Motrin] 600 mg PO Q6HR PRN #40 tab 07/28/19 [Rx] Follow up Appointment(s)/Referral(s): Titus Brothers MD [STAFF PHYSICIAN] - 09/07/19 8:45 am Patient Instructions/Handouts: Vaginal Delivery (DC) Activity/Diet/Wound Care/Special Instructions: No intercourse or anything per vagina for 6 weeks. Please call if any fever, chills, excessive vaginal bleeding, and/or abdominal pain. Discharge Disposition: HOME SELF-CARE
[2019-07-28] MEDS: SENNOSIDES-DOCUSATE SODIUM 1 EACH TAB PO SCH (08:59)
[2019-07-28 10:22] VITALS: BP 127/74; PULSE 72; RESP 16; TEMP 98.3
== END 2019-07-28 14:00 | disposition home or self-care (01) | DRG 807 ==
LOC: 4FBP 06:02
PROVIDERS: ADMIT Obstetrics & Gynecology; ATTEND Obstetrics & Gynecology
PROC: 3E033VJ Introduction of Other Hormone into Peripheral Vein, Percutaneous Approach (ICD-10-PCS; principal; 2019-07-27)
PROC: 0HQ9XZZ Repair Perineum Skin, External Approach (ICD-10-PCS; principal; 2019-07-27)
PROC: 10E0XZZ Delivery of Products of Conception, External Approach (ICD-10-PCS; principal; 2019-07-27)
PROC: 10907ZC Drainage of Amniotic Fluid, Therapeutic from Products of Conception, Via Natural or Artificial Opening (ICD-10-PCS; principal; 2019-07-27)
PROC: 3E0R3BZ Introduction of Anesthetic Agent into Spinal Canal, Percutaneous Approach (ICD-10-PCS; principal; 2019-07-27)
PROC: 00HU33Z Insertion of Infusion Device into Spinal Canal, Percutaneous Approach (ICD-10-PCS; principal; 2019-07-27)
DX: O99.62 Diseases of the digestive system complicating childbirth (principal); Z37.0 Single live birth; O99.354 Diseases of the nervous system complicating childbirth; K21.9 Gastro-esophageal reflux disease without esophagitis; G43.909 Migraine, unspecified, not intractable, without status migrainosus; O74.5 Spinal and epidural anesthesia-induced headache during labor and delivery; O70.0 First degree perineal laceration during delivery; Z3A.39 39 weeks gestation of pregnancy; Z82.49 Family history of ischemic heart disease and other diseases of the circulatory system
CPT/HCPCS: 85025; 86850; 86900; 86901

== ENCOUNTER 2019-08-07 10:23 | Observation (INO) | payer BC ==
[2019-08-07] MEDS ORDERED: SODIUM CHLORIDE 0.9% 1,000 ML IV STA (10:43)
[2019-08-07] MEDS ORDERED: ETODOLAC 400 MG TAB PO STA (10:47)
--- NOTE | 2019-08-07 10:53 | ED ---
Abdominal Pain HPI - General Chief Complaint: Abdominal Pain Stated Complaint: 1wk ,abd pain Time Seen by Provider: 08/07/19 10:32 Source: patient Mode of arrival: ambulatory Limitations: no limitations - History of Present Illness Initial Comments: Patient is a 29-year-old female presenting to the emergency Department with complaints of abdominal pain started suddenly at approximately 3 AM this morning. Patient is currently 1.5 weeks from a normal vaginal delivery. There were no complications, IT SERVICE MANAGER is Dr. Brothers. Patient states she has been feeling well other than some mild lower abdominal cramping. Patient states at approximately 3 AM this morning she had a sudden onset of upper left and right abdominal pain that is very sharp. She described it as an 8/10 pain. Patient states presently is about a 6/10. She denies any fever, nausea, vomiting, diarrhea. Patient states her vaginal bleeding has been decreasing and is minimal at this time. She has been having regular bowel movements. She denies dysuria, hematuria. She states she has been recovering well until early this morning. She denies any previous abdominal surgeries. She denies chest pain, shortness of breath. She has no further complaints. Upo n arrival to the ER, patient's tachycardia at 131, rest of vitals normal. - Related Data Home Medications Medication Instructions Recorded Confirmed Pnv,Calcium 72/Iron/Folic Acid 1 tab PO DAILY 07/23/19 08/07/19 [ Plus Tablet] Previous Rx's Medication Instructions Recorded Ibuprofen [Motrin] 600 mg PO Q6HR PRN #40 tab 07/28/19 Allergies Allergy/AdvReac Type Severity Reaction Status Date / Time No Known Allergies Allergy Verified 08/07/19 11:11 Review of Systems ROS Statement: Those systems with pertinent positive or pertinent negative responses have been documented in the HPI. ROS Other: All systems not noted in ROS Statement are negative. Past Medical History Past Medical History: No Reported History Additional Past Medical History / Comment(s): History of migraine headaches. Patient's had a term vaginal delivery baby girl. History of Any Multi-Drug Resistant Organisms: None Reported Past Surgical History: No Surgical Hx Reported Past Anesthesia/Blood Transfusion Reactions: No Reported Reaction Additional Past Anesthesia/Blood Transfusion Reaction / Comment(s): Spinal headache after last epidural Past Psychological History: No Psychological Hx Reported Smoking Status: Never smoker Past Alcohol Use History: None Reported Past Drug Use History: None Reported - Past Family History Father Family Medical History: Hypertension General Exam - General Exam Comments Initial Comments: GENERAL: Well-appearing, well-nourished and in no acute distress, but appears uncomfortable. HEAD: Atraumatic, normocephalic. EYES: Pupils equal round and reactive to light, extraocular movements intact, sclera anicteric, conjunctiva are normal. ENT: TMs normal, nares patent, oropharynx clear without exudates. Moist mucous membranes. NECK: Normal range of motion, supple without lymphadenopathy or JVD. LUNGS: Breath sounds clear to auscultation bilaterally and equal. No wheezes rales or rhonchi. HEART: Tachycardia rate and rhythm without murmurs, rubs or gallops. ABDOMEN: Tender to palpation of the entire abdomen, increased in the upper abdomen. Soft, normoactive bowel sounds. No guarding, no rebound. : Normal external exam, mild bloody/yellowish discharge on pelvic exam. EXTREMITIES: Normal range of motion, no pitting or edema. No clubbing or cyanosis. NEUROLOGICAL: Cranial nerves II through XII grossly intact. Normal speech, normal gait. PSYCH: Normal mood, normal affect. SKIN: Warm, Dry, normal turgor, no rashes or lesions noted. Limitations: no limitations Course Vital Signs 08/07/19 08/07/19 08/07/19 10:27 10:30 13:55 Temperature 99.4 F 100.6 F H 98.2 F Pulse Rate 131 H 122 H 96 Respiratory 18 15 18 Rate Blood Pressure 135/89 124/74 126/84 O2 Sat by Pulse 98 97 Oximetry Medical Decision Making - Medical Decision Making Patient is a 29-year-old female, 1.5 weeks from normal vaginal delivery, presenting with acute abdominal pain since 3 AM this morning. IT SERVICE MANAGER is Dr. Brothers. Patient did arrive tachycardia, febrile to 100.6. Exam revealed tenderness of the entire abdomen, increase in the upper abdomen as well as suprapubic. Labwork shows slight leukocytosis at 13.5, urine does have moderate blood, large amount leukocyte Estrace, 87 wbc's, bacteria. Computed tomography scan of the abdomen shows hepatosplenomegaly, correlate for endometritis. Pelvic ultrasound also showed possible endometriosis. Normal chest x-ray. Patient was given fluids and pain control. She is resting comfortably in the ER. I did discuss his case with Dr. Brothers who agreed to admit the patient for IV antibiotics with concern for possible endometitis and will recheck in the morning. Patient is agreement this plan of care. Patient was administered 2 g of Ancef. Case discussed with Dr. Gutiérrez. - Lab Data Result diagrams: 08/07/19 11:25 08/07/19 11:25 Lab Results 08/07/19 08/07/19 08/07/19 Range/Units 11:25 11:25 11:25 WBC 13.5 H (3.8-10.6) k/uL RBC 4.61 (3.80-5.40) m/uL Hgb 13.5 (11.4-16.0) gm/dL Hct 40.3 (34.0-46.0) % MCV 87.6 (80.0-100.0) fL MCH 29.3 (25.0-35.0) pg MCHC 33.5 (31.0-37.0) g/dL RDW 13.5 (11.5-15.5) % Plt Count 258 (150-450) k/uL Neutrophils % 90 % Lymphocytes % 6 % Monocytes % 2 % Eosinophils % 1 % Basophils % 0 % Neutrophils # 12.1 H (1.3-7.7) k/uL Lymphocytes # 0.9 L (1.0-4.8) k/uL Monocytes # 0.3 (0-1.0) k/uL Eosinophils # 0.1 (0-0.7) k/uL Basophils # 0.0 (0-0.2) k/uL PT 9.7 (9.0-12.0) sec INR 0.9 (<1.2) APTT 23.4 (22.0-30.0) sec Sodium (137-145) mmol/L Potassium (3.5-5.1) mmol/L Chloride (98-107) mmol/L Carbon Dioxide (22-30) mmol/L Anion Gap mmol/L BUN (7-17) mg/dL Creatinine (0.52-1.04) mg/dL Est GFR (CKD-EPI)AfAm (>60 ml/min/1.73 sqM) Est GFR (CKD-EPI)NonAf (>60 ml/min/1.73 sqM) Glucose (74-99) mg/dL Plasma Lactic Acid Varun (0.7-2.0) mmol/L Calcium (8.4-10.2) mg/dL Total Bilirubin (0.2-1.3) mg/dL AST (14-36) U/L ALT (4-34) U/L Alkaline Phosphatase (38-126) U/L Total Protein (6.3-8.2) g/dL Albumin (3.5-5.0) g/dL Amylase (30-110) U/L Lipase (23-300) U/L Urine Color Light Yellow Urine Appearance Clear (Clear) Urine pH 7.5 (5.0-8.0) Ur Specific [place] 1.007 (1.001-1.035) Urine Protein Negative (Negative) Urine Glucose (UA) Negative (Negative) Urine Ketones Negative (Negative) Urine Blood Moderate H (Negative) Urine Nitrite Negative (Negative) Urine Bilirubin Negative (Negative) Urine Urobilinogen <2.0 (<2.0) mg/dL Ur Leukocyte Esterase Large H (Negative) Urine RBC 8 H (0-5) /hpf Urine WBC 87 H (0-5) /hpf Ur Squamous Epith Cells 1 (0-4) /hpf Urine Bacteria Rare H (None) /hpf 08/07/19 08/07/19 Range/Units 11:25 11:25 WBC (3.8-10.6) k/uL RBC (3.80-5.40) m/uL Hgb (11.4-16.0) gm/dL Hct (34.0-46.0) % MCV (80.0-100.0) fL MCH (25.0-35.0) pg MCHC (31.0-37.0) g/dL RDW (11.5-15.5) % Plt Count (150-450) k/uL Neutrophils % % Lymphocytes % % Monocytes % % Eosinophils % % Basophils % % Neutrophils # (1.3-7.7) k/uL Lymphocytes # (1.0-4.8) k/uL Monocytes # (0-1.0) k/uL Eosinophils # (0-0.7) k/uL Basophils # (0-0.2) k/uL PT (9.0-12.0) sec INR (<1.2) APTT (22.0-30.0) sec Sodium 138 (137-145) mmol/L Potassium 4.1 (3.5-5.1) mmol/L Chloride 107 (98-107) mmol/L Carbon Dioxide 23 (22-30) mmol/L Anion Gap 8 mmol/L BUN 8 (7-17) mg/dL Creatinine 0.57 (0.52-1.04) mg/dL Est GFR (CKD-EPI)AfAm >90 (>60 ml/min/1.73 sqM) Est GFR (CKD-EPI)NonAf >90 (>60 ml/min/1.73 sqM) Glucose 95 (74-99) mg/dL Plasma Lactic Acid Varun 1.1 (0.7-2.0) mmol/L Calcium 9.0 (8.4-10.2) mg/dL Total Bilirubin 1.4 H (0.2-1.3) mg/dL AST 18 (14-36) U/L ALT 22 (4-34) U/L Alkaline Phosphatase 115 (38-126) U/L Total Protein 6.9 (6.3-8.2) g/dL Albumin 3.9 (3.5-5.0) g/dL Amylase 45 (30-110) U/L Lipase 32 (23-300) U/L Urine Color Urine Appearance (Clear) Urine pH (5.0-8.0) Ur Specific [place] (1.001-1.035) Urine Protein (Negative) Urine Glucose (UA) (Negative) Urine Ketones (Negative) Urine Blood (Negative) Urine Nitrite (Negative) Urine Bilirubin (Negative) Urine Urobilinogen (<2.0) mg/dL Ur Leukocyte Esterase (Negative) Urine RBC (0-5) /hpf Urine WBC (0-5) /hpf Ur Squamous Epith Cells (0-4) /hpf Urine Bacteria (None) /hpf Disposition Clinical Impression: Abdominal pain, Febrile Disposition: ADMITTED IP TO THIS [facility] Condition: Stable Is patient prescribed a controlled substance at d/c from ED?: No Decision Date: 08/07/19 Decision Time: 13:57
[2019-08-07] MEDS ORDERED: ACETAMINOPHEN TAB 325 MG TAB PO STA (11:35)
[2019-08-07 11:45] LABS: Basophils % (A) 0 %; Eosinophils # (A) 0.1 k/uL (0-0.7); Eosinophils % (A) 1 %; HCT 40.3 % (34.0-46.0); HGB 13.5 gm/dL (11.4-16.0); Lymphocytes # (A) 0.9 k/uL (1.0-4.8); Lymphocytes % (A) 6 %; MCH 29.3 pg (25.0-35.0); MCHC 33.5 g/dL (31.0-37.0); MCV 87.6 fL (80.0-100.0); Mean Platelet Volume 9.1; Monocytes # (A) 0.3 k/uL (0-1.0); Monocytes % (A) 2 %; Neutrophils # (A) 12.1 k/uL (1.3-7.7); Neutrophils % (A) 90 %; Platelet Count 258 k/uL (150-450); RBC 4.61 m/uL (3.80-5.40); RDW 13.5 % (11.5-15.5); WBC 13.5 k/uL (3.8-10.6)
[2019-08-07 11:48] LABS: INR 0.9 (<1.2); Partial Thromboplastin Time 23.4 sec (22.0-30.0); Prothrombin Time 9.7 sec (9.0-12.0)
[2019-08-07 11:52] LABS: ALT 22 U/L (4-34); AST 18 U/L (14-36); African American GFR (CKD) >90 (>60 ml/min/1.73 sqM); Albumin 3.9 g/dL (3.5-5.0); Alkaline Phosphatase 115 U/L (38-126); Amylase 45 U/L (30-110); Anion Gap 8 mmol/L; Blood Urea Nitrogen 8 mg/dL (7-17); Carbon Dioxide 23 mmol/L (22-30); Chloride 107 mmol/L (98-107); Glucose 95 mg/dL (74-99); Non-African American GFR(CKD) >90 (>60 ml/min/1.73 sqM); Potassium 4.1 mmol/L (3.5-5.1); Sodium 138 mmol/L (137-145); Total Bilirubin 1.4 mg/dL (0.2-1.3); Total Protein 6.9 g/dL (6.3-8.2)
[2019-08-07 11:55] LABS: Appearance,Urine Clear (Clear); Bacteria,Urine Rare /hpf; Bilirubin,Urine Negative (Negative); Blood,Urine Moderate (Negative); Color,Urine Light Yellow; Glucose,Urine (UA) Negative (Negative); Ketones,Urine Negative (Negative); Leukocyte Esterase,Urine Large (Negative); Nitrite,Urine Negative (Negative); PH, Urine 7.5 (5.0-8.0); Protein,Urine Negative (Negative); RBC,Urine 8 /hpf (0-5); Specific Gravity,Urine 1.007 (1.001-1.035); Squamous Epithelial Cell,Urine 1 /hpf (0-4); Urobilinogen,Urine <2.0 mg/dL (<2.0); WBC,Urine 87 /hpf (0-5)
--- NOTE | 2019-08-07 12:16 | CT ---
EXAMINATION TYPE: CT abdomen pelvis w con DATE OF EXAM: 08/07/2019 COMPARISON: Ultrasound 12/23/2016 HISTORY: abd pain, one week (normal vaginal delivery) CT DLP: 1681.5 mGycm Automated exposure control for dose reduction was used. TECHNIQUE: Helical acquisition of images from the lung bases through the pelvis have been completed. CONTRAST: Performed without Oral Contrast and with IV Contrast, patient injected with 100 mL of Isovue 300. FINDINGS: LUNG BASES: There is a small left pleural effusion present, there may be minimal basilar atelectatic change. AORTA: No significant abnormality is appreciated. LIVER/GB: Liver is enlarged. Gallbladder is unremarkable.. PANCREAS: No significant abnormality is seen. SPLEEN: Spleen is enlarged to 14.4 cm. ADRENALS: No significant abnormality is seen. KIDNEYS: No significant abnormality is seen. REPRODUCTIVE ORGANS: The uterus is enlarged. Density of the uterus is somewhat heterogeneous, some mi nimal fluid along the endometrium. BOWEL: There are some fluid-filled loops of small bowel, air-fluid level present within the large ngoc wel at the level the cecum FREE AIR: No Free Air visible. ASCITES: Minimal fluid present along the mesentery.. PELVIC ADENOPATHY: None visualized. RETROPERITONEAL ADENOPATHY: No Retroperitoneal Adenopathy visible. URINARY BLADDER: No significant abnormality is seen. OSSEOUS STRUCTURES: No significant abnormality is seen. IMPRESSION: HEPATOSPLENOMEGALY. MINIMAL LEFT PLEURAL EFFUSION, BASILAR ATELECTASIS. APPEARANCE OF THE UTERUS MAY BE DUE TO STATE, CORRELATE TO EXCLUDE ENDOMETRITIS. THERE MAY BE AN UNDERLYING ENTERITIS.
--- NOTE | 2019-08-07 12:59 | XR ---
EXAMINATION TYPE: XR chest 2V DATE OF EXAM: 08/07/2019 COMPARISON: NONE HISTORY: Fever TECHNIQUE: Frontal and lateral views of the chest are obtained. FINDINGS: There is no focal air space opacity, pleural effusion, or pneumothorax seen. The cardiac silhouette size is within normal limits. The osseous structures are intact. Intravenous contrast fr om the recent CT is noted within the renal collecting systems, partially visualized. The trace left p leural effusion seen on CT the same date is not identified on x-ray. IMPRESSION: No acute cardiopulmonary process.
--- NOTE | 2019-08-07 13:25 | US ---
EXAMINATION TYPE: US pelvic complete DATE OF EXAM: 08/07/2019 COMPARISON: NONE CLINICAL HISTORY: pain, fever, 1wk . Pain and fever 1 week. TECHNIQUE: Transabdominal (TA in comparison to CT same date EXAM MEASUREMENTS: Uterus: 13.1 x 6.8 x 10.1 cm Endometrial Stripe: 2.7 cm Right Ovary: Obscured by bowel gas. Left Ovary: Obscured by bowel gas. 1. Uterus: Anteverted heterogeneous echotexture noted of the myometrium. 2. Endometrium: Minimal fluid noted along the endometrium, endometrium is thickened and heterogeneou s. 3. Right Ovary: Obscured by bowel gas 4. Left Ovary: Obscured by bowel gas 5. Bilateral Adnexa: wnl 6. Posterior cul-de-sac: wnl IMPRESSION: Correlate for endometritis
[2019-08-07] MEDS ORDERED: NALOXONE 0.4 MG/ML 1 ML VIAL IV PRN (13:54)
[2019-08-07] MEDS ORDERED: ACETAMINOPHEN TAB 325 MG TAB PO PRN (13:54)
[2019-08-07] MEDS ORDERED: IBUPROFEN 400 MG TAB PO PRN (13:54)
[2019-08-07] MEDS ORDERED: ONDANSETRON 4 MG/2 ML VIAL IVP PRN (13:54)
[2019-08-07] MEDS ORDERED: SODIUM CHLORIDE 0.9% 1,000 ML IV SCH (14:00)
--- NOTE | 2019-08-07 17:29 | P.HPOB ---
History of Present Illness H&P Date: 08/07/19 Chief Complaint: upper abdominal pain This patient is a pleasant 29-year-old 2 para 2 female who delivered a viable female approximately 1-1/2 weeks ago (July 26). Patient induction of labor and had a fast labor and uncomplicated delivery. During that admission patient had a normal white blood cell count no fevers. Patient states that about 3 AM last night she began having significant upper quadrant pain bilaterally. She denies any nausea vomiting or diarrhea. She did have some chills but no fevers. Patient states that her bleeding from delivery has almost stopped. Patient called my office this morning structure go to the emergency department. Evaluation here includes a CT and pelvic ultrasound. For the most part this was unremarkable with the question of underlying enteritis and some heterogeneous findings in the endometrium which of course is consistent with recent vaginal delivery. Patient did have a white blood cell count was elevated to 13.5. She also had a low-grade temperature to 100.6 well here. Urine shows some white cells but could be contaminated due to recent vaginal delivery. Review of Systems Constitutional: Reports as per HPI Past Medical History Past Medical History: No Reported History Additional Past Medical History / Comment(s): History of migraine headaches. Patient's had a term vaginal delivery baby girl x 2 History of Any Multi-Drug Resistant Organisms: None Reported Past Surgical History: No Surgical Hx Reported Past Anesthesia/Blood Transfusion Reactions: No Reported Reaction Additional Past Anesthesia/Blood Transfusion Reaction / Comment(s): Spinal headache after last epidural Past Psychological History: No Psychological Hx Reported Smoking Status: Never smoker Past Alcohol Use History: None Reported Past Drug Use History: None Reported - Past Family History Father Family Medical History: Hypertension Medications and Allergies Home Medications Medication Instructions Recorded Confirmed Type Pnv,Calcium 72/Iron/Folic Acid 1 tab PO DAILY 07/23/19 08/07/19 History [ Plus Tablet] Ibuprofen [Motrin] 600 mg PO Q6HR PRN #40 tab 07/28/19 08/07/19 Rx Allergies Allergy/AdvReac Type Severity Reaction Status Date / Time No Known Allergies Allergy Verified 08/07/19 11:11 Exam Vital Signs Temp Pulse Pulse Resp BP BP Pulse Ox 08/07/19 14:56 98.4 F 80 16 125/68 96 08/07/19 14:45 98.4 F 80 16 125/68 96 08/07/19 13:55 98.2 F 96 18 126/84 08/07/19 10:30 100.6 F H 122 H 15 124/74 97 08/07/19 10:27 99.4 F 131 H 18 135/89 98 Intake and Output 08/07/19 08/07/19 08/07/19 06:59 14:59 22:59 Other: Weight 91.172 kg - OBG Physical Exam Abdomen: Exam her abdomen shows to be soft tender with deep palpation but no rebound or guarding. Results Result Diagrams: 08/07/19 11:25 08/07/19 11:25 Abnormal Lab Results - Last 24 Hours (Table) 08/07/19 08/07/19 08/07/19 Range/Units 11:25 11:25 11:25 WBC 13.5 H (3.8-10.6) k/uL Neutrophils # 12.1 H (1.3-7.7) k/uL Lymphocytes # 0.9 L (1.0-4.8) k/uL Total Bilirubin 1.4 H (0.2-1.3) mg/dL Urine Blood Moderate H (Negative) Ur Leukocyte Esterase Large H (Negative) Urine RBC 8 H (0-5) /hpf Urine WBC 87 H (0-5) /hpf Urine Bacteria Rare H (None) /hpf Microbiology - Last 24 Hours (Table) 08/07/19 11:25 Urine Culture - Preliminary Urine,Voided Assessment and Plan Assessment: This is a pleasant 29-year-old 2 para 2 female status post spontaneous vaginal delivery approximately 1-1/2 weeks ago that was uncomplicated. Patient is not having upper quadrant pain with low-grade temperature and mild leukocytosis. It would be very unlikely for her to presents this lady with an endometritis and she does not really have any significant pelvic symptoms. It is possible this is a gastroenteritis however she again has no nausea vomiting or diarrhea. Patient does have an appetite. Plan is to admit for IV antibiotics and repeat her CBC in the morning. If she feels wells tolerating regular food is afebrile then consider discharge home on oral antibiotics. (1) Abdominal pain Current Visit: Yes Status: Acute Code(s): R10.9 - UNSPECIFIED ABDOMINAL PAIN SNOMED Code(s): 53880416
[2019-08-08 05:56] LABS: Basophils % (A) 1 %; Eosinophils # (A) 0.2 k/uL (0-0.7); Eosinophils % (A) 3 %; HGB 11.8 gm/dL (11.4-16.0); Hypochromasia Slight; Lymphocytes # (A) 1.3 k/uL (1.0-4.8); Lymphocytes % (A) 22 %; MCH 28.1 pg (25.0-35.0); MCHC 31.2 g/dL (31.0-37.0); MCV 90.1 fL (80.0-100.0); Mean Platelet Volume 8.6; Monocytes # (A) 0.3 k/uL (0-1.0); Monocytes % (A) 5 %; Neutrophils % (A) 68 %; Platelet Count 221 k/uL (150-450); RBC 4.21 m/uL (3.80-5.40); RDW 13.7 % (11.5-15.5); WBC 5.9 k/uL (3.8-10.6)
--- NOTE | 2019-08-08 06:06 | P.PN ---
Progress Note - Text Progress Note Date: 08/08/19 Patient rested overnight. She had 2 episodes of diarrhea. Vital signs are stable and she is afebrile. CBC this morning shows her white count to be normal at 5.9. Patient is tolerating regular diet. She states that her pain is decreased and she is currently sleeping. His my impression this most likely is gastrointestinal in etiology, however going to let her go home on some oral antibiotics. She given instructions to call she had a persistent fever with nausea or vomiting or increased symptomatology.
--- NOTE | 2019-08-08 06:11 | P.DS ---
Providers Date of admission: 08/07/19 13:47 Expected date of discharge: 08/08/19 Attending physician: Titus Brothers Primary care physician: Stated None - Discharge Diagnosis(es) (1) Abdominal pain Current Visit: Yes Status: Acute Hospital Course: Please see dictated H&P for intimate details of this patient's admission. Brief summary this pleasant 29-year-old 2 para 2 female admitted through the emergency department with complaints of 12 hours of upper abdominal pain. Patient also had low-grade temperature to 100.6. Evaluation was nonspecific and included possible endometritis versus enteritis. Patient is admitted and given IV fluids and IV antibiotics. Patient tolerated regular diet and had no nausea or vomiting however did developed 2 episodes of diarrhea. Repeat white blood cell count showed her to be normal at 5.9. Patient rested overnight is felt to be having significant decrease pain by morning such that she was felt be stable for discharge home follow up with me in 2 weeks. Patient Condition at Discharge: Stable Plan - Discharge Summary New Discharge Prescriptions: New Cephalexin [Keflex] 500 mg PO Q6HR 7 Days #28 cap No Action Pnv,Calcium 72/Iron/Folic Acid [ Plus Tablet] 1 tab PO DAILY Ibuprofen [Motrin] 600 mg PO Q6HR PRN #40 tab PRN Reason: Mild Pain Or Fever >= 100.5 Discharge Medication List Pnv,Calcium 72/Iron/Folic Acid [ Plus Tablet] 1 tab PO DAILY 07/23/19 [History] Ibuprofen [Motrin] 600 mg PO Q6HR PRN #40 tab 07/28/19 [Rx] Cephalexin [Keflex] 500 mg PO Q6HR 7 Days #28 cap 08/08/19 [Rx] Follow up Appointment(s)/Referral(s): Titus Brothers MD [STAFF PHYSICIAN] - 2 Weeks Patient Instructions/Handouts: Gastroenteritis (DC) Activity/Diet/Wound Care/Special Instructions: instructions as previously discussed. Please try to drink lots of fluids. May take Motrin and Tylenol for discomfort. Please call if persistent fevers, inability to keeping down, or other complaints. Discharge Disposition: HOME SELF-CARE
[2019-08-08 08:06] VITALS: BP 112/70; PULSE 68; RESP 15; TEMP 98
== END 2019-08-08 08:30 | disposition home or self-care (01) ==
LOC: EC 10:23 → 4FBP 13:47
PROVIDERS: ADMIT Obstetrics & Gynecology; ATTEND Obstetrics & Gynecology
DX: O90.89 Other complications of the puerperium, not elsewhere classified (principal); R10.30 Lower abdominal pain, unspecified; R10.10 Upper abdominal pain, unspecified; O86.4 Pyrexia of unknown origin following delivery; D72.829 Elevated white blood cell count, unspecified; R16.2 Hepatomegaly with splenomegaly, not elsewhere classified; R19.7 Diarrhea, unspecified; R00.0 Tachycardia, unspecified; G43.909 Migraine, unspecified, not intractable, without status migrainosus; Z03.818 Encounter for observation for suspected exposure to other biological agents ruled out; Z82.49 Family history of ischemic heart disease and other diseases of the circulatory system
CPT/HCPCS: 96365; 96361; 99285; 36415; 80053; 82150; 83605; 83690; 85025 ×2; 85610; 85730; 81001; 87086; 71046; 76856; 74177; G0378 ×2; U0003; J0690 ×3; Q9967

== ENCOUNTER → 2019-09-04 | Outpatient (CLI) | payer BC ==
--- NOTE | 2019-09-05 13:14 | US ---
EXAMINATION TYPE: US gallbladder DATE OF EXAM: 09/04/2019 COMPARISON: NONE CLINICAL HISTORY: R10.11 R upper quad pain. RUQ Pain EXAM MEASUREMENTS: Liver Length: 17.8 cm Gallbladder Wall: .3 cm CBD: .4 cm Right Kidney: 11.7 x 4.4 x 4.7 cm Pancreas: wnl Liver: wnl Gallbladder: Multiple tiny stones seen. Evidence for sonographic Louis's sign: No CBD: wnl Right Kidney: wnl IMPRESSION: 1. Cholelithiasis
== END | disposition home or self-care (01) ==
LOC: RADUSWWP 16:53
PROVIDERS: ATTEND Obstetrics & Gynecology
DX: K80.20 Calculus of gallbladder without cholecystitis without obstruction (principal)
CPT/HCPCS: 76705

== ENCOUNTER → 2021-03-06 | Outpatient (CLI) | payer BC ==
[2021-03-06 14:13] LABS: HCT 42.3 % (34.0-46.0); HGB 13.5 gm/dL (11.4-16.0); MCH 27.8 pg (25.0-35.0); MCV 86.8 fL (80.0-100.0); Mean Platelet Volume 8.7; Platelet Count 344 k/uL (150-450); RBC 4.87 m/uL (3.80-5.40); RDW 13.4 % (11.5-15.5); WBC 8.2 k/uL (3.8-10.6)
[2021-03-06 14:32] LABS: ALT 73 U/L (4-34); AST 42 U/L (14-36); African American GFR (CKD) >90 (>60 ml/min/1.73 sqM); Albumin 4.6 g/dL (3.5-5.0); Alkaline Phosphatase 89 U/L (38-126); Anion Gap 12 mmol/L; Blood Urea Nitrogen 12 mg/dL (7-17); Calcium 9.8 mg/dL (8.4-10.2); Carbon Dioxide 25 mmol/L (22-30); Chloride 103 mmol/L (98-107); Glucose 88 mg/dL (74-99); Non-African American GFR(CKD) >90 (>60 ml/min/1.73 sqM); Potassium 4.4 mmol/L (3.5-5.1); Sodium 140 mmol/L (137-145); Total Bilirubin 0.6 mg/dL (0.2-1.3); Total Protein 7.6 g/dL (6.3-8.2)
== END | disposition home or self-care (01) ==
LOC: LABPAT 12:27
PROVIDERS: ATTEND Surgery
DX: K81.1 Chronic cholecystitis (principal)
CPT/HCPCS: 80053; 85027

== ENCOUNTER 2022-01-02 05:58 | Inpatient (IN) | payer BC ==
[2022-01-02] MEDS ORDERED: LIDOCAINE 0.5% (PF) 5 MG/ML (50 ML SDV) SQ PRN (06:16)
[2022-01-02] MEDS ORDERED: TERBUTALINE 1 MG/ML VIAL SQ PRN (06:16)
--- NOTE | 2022-01-02 06:20 | P.HPOB ---
History of Present Illness H&P Date: 01/02/22 Chief Complaint: Requested induction of labor. This patient is a pleasant 31-year-old 3 para 2 female estimated date of confinement 01/02/2022 estimated gestational age 40-0/7 weeks who presents to labor and delivery for requested induction of labor. She is having some contractions as well. care has been uncomplicated. Review of Systems Genitourinary: Reports Menstruation: Reports amenorrhea Past Medical History Past Medical History: No Reported History Additional Past Medical History / Comment(s): History of migraine History of Any Multi-Drug Resistant Organisms: None Reported Past Surgical History: No Surgical Hx Reported Past Anesthesia/Blood Transfusion Reactions: No Reported Reaction Additional Past Anesthesia/Blood Transfusion Reaction / Comment(s): Spinal headache after last epidural Smoking Status: Never smoker - Past Family History Father Family Medical History: Hypertension Medications and Allergies Home Medications Medication Instructions Recorded Confirmed Type Vit No.179/Iron/Folic 1 each PO 01/02/22 History [ Tablet] Allergies Allergy/AdvReac Type Severity Reaction Status Date / Time No Known Allergies Allergy Verified 01/02/22 06:10 Exam Intake and Output 01/01/22 01/01/22 01/02/22 14:59 22:59 06:59 Other: Weight 99.337 kg - OBG Physical Exam Abdomen: bowel sounds normal, no diffuse tenderness, no bruit present, no guarding noted, no hepatomegaly, no splenomegaly, no mass Vulva: both: normal Vagina: normal moisture, no discharge Cervix: no lesion, no discharge Uterus: enlarged Results blood work shows she is A positive, rubella immune, RPR nonreactive, hepatitis B negative, HIV is nonreactive, Glucola was normal, group B strep was negative. Ultrasounds have been normal. Assessment and Plan Assessment: This is a pleasant 31-year-old 3 para 2 female 40-0/7 weeks gestation admitted to labor and delivery for requested induction of labor. Plan is induction of labor and anticipate vaginal delivery. (1) 40 weeks gestation of Current Visit: Yes Status: Acute Code(s): Z3A.40 - 40 WEEKS GESTATION OF SNOMED Code(s): 65416712 (2) Elective induction of labor planned Current Visit: No Status: Acute Code(s): [id number] - SNOMED Code(s): 381890309
[2022-01-02] MEDS ORDERED: LACTATED RINGERS 1,000 ML IV SCH (06:30)
[2022-01-02] MEDS ORDERED: OXYTOCIN 30 UNITS/500 ML NS 30 UNIT in SALINE 1 500ML.BAG IV SCH ×2 (06:30→13:07)
[2022-01-02 06:35] LABS: Basophils % (A) 0 %; Eosinophils # (A) 0.1 k/uL (0-0.7); Eosinophils % (A) 2 %; HCT 34.4 % (34.0-46.0); HGB 11.4 gm/dL (11.4-16.0); Lymphocytes # (A) 1.7 k/uL (1.0-4.8); Lymphocytes % (A) 21 %; MCH 27.7 pg (25.0-35.0); MCV 83.9 fL (80.0-100.0); Monocytes # (A) 0.3 k/uL (0-1.0); Monocytes % (A) 4 %; Neutrophils % (A) 72 %; Platelet Count 211 k/uL (150-450); RBC 4.11 m/uL (3.80-5.40); RDW 14.4 % (11.5-15.5); WBC 8.3 k/uL (3.8-10.6)
[2022-01-02] MEDS ORDERED: ROPIVACAINE 5 MG/ML 20 ML AMPULE ONE (09:48)
[2022-01-02] MEDS ORDERED: fentaNYL (PF) 50 MCG/ML 5 ML AMP ONE (09:48)
[2022-01-02] MEDS ORDERED: SODIUM CHLORIDE 0.9% 100 ML BAG ONE (09:48)
--- NOTE | 2022-01-02 12:39 | P.PROBDLV ---
Vaginal Delivery Note - . Vaginal Delivery Note: normal spontaneous vaginal delivery viable male infant Apgars 9 and 9 delivery time is 1219 hrs. Please see dictated H&P for intimate details of this patient's admission. Brief summary this is a pleasant 31-year-old 3 para 2 female 40-0/7 weeks gestation was initially admitted to labor and delivery for induction of labor however began having contractions at about 3 this morning. Patient was 4 cm dilated on admission and has artificial rupture membranes for clear fluid. Labor progresses and she does get some Pitocin augmentation of labor. She gets an epidural for pain control with excellent relief. Labor progresses quickly she gets to complete. Patient pushes the head to the perineum the posterior perineum is supported. We have controlled delivery of the infant's head over the intact perineum. There is a compound presentation with a hand on the posterior side. I bulb suction the mouth and nares. The Ela spontaneously reduced. Then we then have delivery of the anterior shoulder and rest this infant's body. This is a vigorous viable male Apgars are 9 and 9 delivery time is 1219 hrs. After delivery of the the infant is laid on the mother's abdomen. After the cord is then pulsating it is doubly clamped and cut and appears to be trivascular. The placenta is then spontaneously delivered intact. Inspection of perineum shows a first-degree laceration is repaired with 3-0 Vicryl usual fashion. Excellent reapproximation is noted. and mother are stable delivery room. There are no complications. All counts correct 3.
[2022-01-02] MEDS ORDERED: HYDROCORTISONE 2.5% RECTAL CREAM 30 GM TUBE RECTAL PRN (13:07)
[2022-01-02] MEDS ORDERED: LANOLIN CREAM 5 GM TUBE TOPICAL PRN (13:07)
[2022-01-02] MEDS ORDERED: bisacodyL 10 MG SUPP RECTAL PRN (13:07)
[2022-01-02] MEDS ORDERED: diphenhydrAMINE 50 MG/ML 1 ML VIAL IVP PRN (13:07)
[2022-01-02] MEDS ORDERED: ZOLPIDEM 5 MG TAB PO PRN (13:07)
[2022-01-02] MEDS ORDERED: BENZOCAINE/MENTHOL SPRAY 1 GM/SPRAY AEROSOL TOPICAL PRN (13:07)
[2022-01-02] MEDS ORDERED: ACETAMINOPHEN TAB 325 MG TAB PO PRN (13:07)
[2022-01-02] MEDS ORDERED: SIMETHICONE 80 MG CHEWABLE PO PRN (13:07)
[2022-01-02] MEDS ORDERED: IBUPROFEN 600 MG TAB PO PRN (13:07)
[2022-01-02] MEDS ORDERED: diphenhydrAMINE 25 MG CAP PO PRN (13:07)
[2022-01-02] MEDS: SENNOSIDES-DOCUSATE SODIUM 1 EACH TAB PO SCH (19:53)
--- NOTE | 2022-01-03 12:07 | P.PNOBGVD ---
Subjective - Subjective Patient reports: Reports appetite normal, Reports voiding normally, Reports pain well controlled, Reports ambulating normally : doing well Objective - Latest Vital Signs Latest vital signs: Vital Signs Temp Pulse Resp BP Pulse Ox 01/03/22 00:00 98.2 F 84 16 127/84 97 01/02/22 20:00 98.3 F 77 16 131/91 98 01/02/22 15:24 76 16 121/66 01/02/22 15:19 76 16 121/66 01/02/22 14:18 96.4 F L 84 16 120/63 01/02/22 13:48 86 16 112/73 01/02/22 13:33 88 16 147/71 01/02/22 13:18 82 16 147/71 01/02/22 13:03 81 16 134/68 01/02/22 12:48 85 16 147/71 Intake and Output 01/02/22 01/03/22 01/03/22 22:59 06:59 14:59 Output Total 230 Balance -230 Output: Estimated Blood Loss 200 Output, Quantitative 30 Blood Loss Other: # Voids 1 1 - Exam Lungs: bilateral: normal Chest: Normal S1, Normal S2 Extremities: Present: normal Abdomen: Present: normal appearance, soft Uterus: Present: normal, firm Assessment and Plan Assessment: day #1. Patient is resting without complaints and wishes to go home. Vital signs are stable she is afebrile. Uterus is firm nontender and she is having normal lochia. My impression this is a normal course. Plan is to continue routine care discharge home later today (1) 40 weeks gestation of Current Visit: Yes Status: Acute Code(s): Z3A.40 - 40 WEEKS GESTATION OF SNOMED Code(s): 91542864 (2) Elective induction of labor planned Current Visit: No Status: Acute Code(s): [id number] - SNOMED Code(s): 705986844
--- NOTE | 2022-01-03 12:10 | P.DS ---
Providers Date of admission: 01/02/22 05:58 Expected date of discharge: 01/03/22 Attending physician: Titus Brothers Primary care physician: Stated None - Discharge Diagnosis(es) (1) 40 weeks gestation of Current Visit: Yes Status: Acute (2) Elective induction of labor planned Current Visit: No Status: Acute Hospital Course: Please see dictated admission history and physical and delivery note on this patient's admission. In brief summary this is a pleasant 31-year-old 3 para 2 female 40-0/7 weeks gestation who is admitted to labor and delivery initially for induction of labor found to be in early labor. Patient quickly goes on to have a vaginal delivery viable male . Please see dictated delivery note. day #1 patient is doing well wishes to go home. Patient's felt be stable for discharge home follow up with me in 6 weeks. Procedures: Normal spontaneous vaginal delivery Patient Condition at Discharge: Good Plan - Discharge Summary New Discharge Prescriptions: No Action Vit No.179/Iron/Folic [ Tablet] 1 each PO Discharge Medication List Vit No.179/Iron/Folic [ Tablet] 1 each PO 01/02/22 [History] Follow up Appointment(s)/Referral(s): Titus Brothers MD [STAFF PHYSICIAN] - 02/11/22 8:45 am Patient Instructions/Handouts: Vaginal Delivery (DC) Activity/Diet/Wound Care/Special Instructions: No intercourse or anything per vagina for 6 weeks. Please call if any fever, chills, excessive vaginal bleeding, and/or abdominal pain Discharge Disposition: HOME SELF-CARE
[2022-01-03 12:28] VITALS: BP 138/91; PULSE 74; RESP 14; TEMP 97.9
[2022-01-03] MEDS: SENNOSIDES-DOCUSATE SODIUM 1 EACH TAB PO SCH (12:29)
== END 2022-01-03 13:00 | disposition home or self-care (01) | DRG 807 ==
LOC: 4FBP 05:58
PROVIDERS: ADMIT Obstetrics & Gynecology; ATTEND Obstetrics & Gynecology
PROC: 10E0XZZ Delivery of Products of Conception, External Approach (ICD-10-PCS; principal; 2022-01-02)
PROC: 0HQ9XZZ Repair Perineum Skin, External Approach (ICD-10-PCS; 2022-01-02)
DX: O32.6XX0 Maternal care for compound presentation, not applicable or unspecified (principal); Z37.0 Single live birth; O70.0 First degree perineal laceration during delivery; Z3A.40 40 weeks gestation of pregnancy
CPT/HCPCS: 85025; 86850; 86900; 86901